=== PATIENT | female | born 1990 | race Caucasian/White ===

== ENCOUNTER 2020-11-10 16:01 | Emergency (ER) | payer SELFPAY ==
[2020-11-10 16:26] LABS: BILIRUBIN,URINE NEGATIVE (NEGATIVE); GLUCOSE, URINE (UA) NEGATIVE (NEGATIVE); KETONES,URINE (UA) NEGATIVE (NEGATIVE); LEUKOCYTE ESTERASE, URINE TRACE (NEGATIVE); NITRITE,URINE NEGATIVE (NEGATIVE); OCCULT BLOOD,URINE NEGATIVE (NEGATIVE); PH,URINE 8.5 PH (5.0-7.5); PROTEIN,URINE NEGATIVE (NEGATIVE); UROBILINOGEN,URINE 0.2 (NORMAL) E.U./dL (NORMAL)
[2020-11-10 16:27] LABS: CLARITY,URINE CLEAR (CLEAR)
[2020-11-10 16:33] LABS: BACTERIA,URINE Rare /HPF (None Seen); HCG UR QUAL NEGATIVE; MUCUS,URINE Few Strands; RBC,URINE 0-5 /HPF (0-5); WBC,URINE 0-3 /HPF (0-5)
[2020-11-10 16:35] LABS: SQUAMOUS EPITHELIAL CELL,UR MOD Squamous (<= Few)
[2020-11-10] MEDS ORDERED: cefTRIAXone 250 MG VIAL IM STA (16:38)
[2020-11-10] MEDS ORDERED: DOXYCYCLINE 100 MG TABLET PO STA (16:38)
[2020-11-10] MEDS ORDERED: LIDOCAINE 1% 2 ML VIAL MC ONE (16:38)
--- NOTE | 2020-11-10 16:42 | ED Physician Documentation ---
History of Present Illness - Stated complaint Stated Complaint: FEMALE - Chief complaint Chief Complaint: UTI - History obtained from History obtained from: Patient - Additonal information Additional information: Patient comes emergency department for chief complaint of "vaginal discharge that feels just like my chlamydia that I had before". She also complains of sores on her legs, which she thinks are infected with staph bacteria. Patient states that she is homeless, but does try to keep her source clean with alcohol. She denies any fevers or chills. She states she has had a discomfort in her low midline pelvis with discharge ever since her children's father was sleeping around with a number of different women the summer. Patient states that she has an IUD in place but worries that she may be . No vaginal bleeding. She has taken a store-bought test a few times and each time, seems indeterminate. No other complaints at this time. Review of Systems Ten Systems: 10 systems reviewed and negative Constitutional: reports: Reviewed and negative Eyes: reports: Reviewed and negative Ears: reports: Reviewed and negative Nose: reports: Reviewed and negative Throat: reports: Reviewed and negative Cardiac: reports: Reviewed and negative Respiratory: reports: Reviewed and negative GI: reports: Reviewed and negative : reports: Discharge Skin: reports: Lesions Musculoskeletal: reports: Reviewed and negative Neurologic: reports: Reviewed and negative Psychiatric: reports: Reviewed and negative Endocrine: reports: Reviewed and negative Immunocompromised: reports: Reviewed and negative PD PAST MEDICAL HISTORY - Past Surgical History Past Surgical History: Yes - Present Medications Home Medications: Ambulatory Orders Medication Instructions Recorded Confirmed Doxycycline Monohydrate 100 mg PO BID #14 11/10/20 - Allergies Allergies/Adverse Reactions: Allergies Allergy/AdvReac Type Severity Reaction Status Date / Time Penicillins Allergy Rash Verified 11/10/20 16:08 - Social History Does the pt smoke?: Yes Smoking Status: Current every day smoker Does the pt drink ETOH?: Yes Does the pt have substance abuse?: Yes Substance Use and Type: Marijuana PD ED PE NORMAL - Vitals Vital signs reviewed: Yes - General General: Alert and oriented X 3, No acute distress, Well developed/nourished - HEENT HEENT: Atraumatic, PERRL, EOMI, Moist mucous membranes - Neck Neck: Supple, no meningeal sign - Cardiac Cardiac: RRR, No murmur, Strong equal pulses - Respiratory Respiratory: No respiratory distress, Clear bilaterally - Abdomen Abdomen: Soft, Non tender, Non distended - Female Female : Deferred - Derm Derm: Normal color, Warm and dry, Other (Multiple lesions, scabbed, without drainage or associated edema/erythema. No induration or fluctuance.) - Extremities Extremities: No deformity, No edema - Neuro Neuro: Alert and oriented X 3, resident care director 2-12 intact, Normal speech - Psych Psych: Normal mood, Normal affect Results - Vitals Vitals: Vital Signs - 24 hr 11/10/20 16:05 Temperature 36.6 C Heart Rate 104 H Respiratory 16 Rate Blood Pressure 121/84 H O2 Saturation 100 Oxygen O2 Source Room air - Labs Labs: Laboratory Tests 11/10/20 16:12 Urine Color YELLOW Urine Clarity CLEAR Urine pH 8.5 H Ur Specific [place] 1.020 Urine Protein NEGATIVE Urine Glucose (UA) NEGATIVE Urine Ketones NEGATIVE Urine Occult Blood NEGATIVE Urine Nitrite NEGATIVE Urine Bilirubin NEGATIVE Urine Urobilinogen 0.2 (NORMAL) Ur Leukocyte Esterase TRACE H Urine RBC 0-5 Urine WBC 0-3 Ur Squamous Epith Cells MOD Squamous H Urine Bacteria Rare Urine Mucus Few Strands Ur Microscopic Review INDICATED Urine Culture Comments NOT INDICATED Urine HCG, Qual NEGATIVE PD MEDICAL DECISION MAKING - ED course Complexity details: reviewed results, re-evaluated patient, considered differential, d/w patient ED course: Patient's urinalysis and test were negative. She was treated with Rocephin and doxycycline, due to her high risk situation. I do not find her lesions to appear infected. We have discussed the need for follow-up in women's health if her symptoms are not improved after the antibiotics. Departure - Departure Disposition: 01 Home, Self Care Clinical Impression: Sexually transmitted infection, Skin lesions Condition: Stable Instructions: ED Chlamydia Female Prescriptions: Doxycycline Monohydrate 100 mg PO BID #14 Comments: Please take the antibiotics as directed. Your test is negative. If you become sexually active again with your children's father, please encourage him to be tested and treated for sexually transmitted infection. If you are still having symptoms after treatment, please follow-up in Women's Health for further evaluation.
[2020-11-10 17:12] VITALS: BP 123/80
== END 2020-11-10 17:14 | disposition home or self-care (01) ==
LOC: ED 16:01
DX: A64 Unspecified sexually transmitted disease (principal); L98.9 Disorder of the skin and subcutaneous tissue, unspecified; Z32.02 Encounter for pregnancy test, result negative; Z97.5 Presence of (intrauterine) contraceptive device; Z59.00 Homelessness unspecified; F17.200 Nicotine dependence, unspecified, uncomplicated
CPT/HCPCS: 81001; 81025; 96372; 99283; A9270; 81003; 87086

== ENCOUNTER 2020-11-26 12:45 | Emergency (ER) | payer MEDICAID ==
[2020-11-26 12:55] VITALS: BP 98/65
[2020-11-26 13:14] LABS: BASOPHILS % (AUTO) 0.5 %; EOSINOPHILS # (AUTO) 0.2 10^3/uL (0.0-0.7); EOSINOPHILS % (AUTO) 2.3 %; HCT - HEMATOCRIT 38.1 % (37.0-47.0); HGB - HEMOGLOBIN 12.6 g/dL (12.0-16.0); LYMPHOCYTES # (AUTO) 2.1 10^3/uL (1.5-3.5); LYMPHOCYTES % (AUTO) 26.9 %; MEAN CORPUSCULAR HEMOGLOBIN 31.5 pg (27.0-31.0); MEAN CORPUSCULAR HGB CONC 33.1 g/dL (32.0-36.0); MEAN CORPUSCULAR VOLUME 95.3 fL (81.0-99.0); MEAN PLATELET VOLUME 9.6 fL (7.9-10.8); MONOCYTES # (AUTO) 0.6 10^3/uL (0.0-1.0); MONOCYTES % (AUTO) 7.8 %; NEUTROPHILS # (AUTO) 4.9 10^3/uL (1.5-6.6); NEUTROPHILS % (AUTO) 62.2 %; PLT - PLATELET COUNT 223 10^3/uL (130-450); WHITE BLOOD COUNT 7.9 x10^3/uL (4.8-10.8)
[2020-11-26 13:23] LABS: ALBUMIN 4.2 g/dL (3.2-5.5); ALBUMIN/GLOBULIN RATIO 1.4 (1.0-2.2); BILIRUBIN,TOTAL 0.5 mg/dL (0.2-1.0); CREATININE 0.5 mg/dL (0.4-1.0); TOTAL PROTEIN 7.1 g/dL (6.7-8.2)
[2020-11-26 13:32] LABS: BILIRUBIN,URINE NEGATIVE (NEGATIVE); GLUCOSE, URINE (UA) NEGATIVE (NEGATIVE); KETONES,URINE (UA) NEGATIVE (NEGATIVE); LEUKOCYTE ESTERASE, URINE LARGE (NEGATIVE); NITRITE,URINE NEGATIVE (NEGATIVE); OCCULT BLOOD,URINE NEGATIVE (NEGATIVE); PH,URINE 7.5 PH (5.0-7.5); PROTEIN,URINE NEGATIVE (NEGATIVE); UROBILINOGEN,URINE 0.2 (NORMAL) E.U./dL (NORMAL)
[2020-11-26 13:34] LABS: HCG UR QUAL NEGATIVE
[2020-11-26 13:40] LABS: BACTERIA,URINE Rare /HPF (None Seen); CLARITY,URINE CLEAR (CLEAR); RBC,URINE 0-5 /HPF (0-5); SQUAMOUS EPITHELIAL CELL,UR MOD Squamous (<= Few)
--- NOTE | 2020-11-26 15:19 | ED Physician Documentation ---
PD HPI BACK PAIN - Stated complaint Stated Complaint: BACK PX - Chief complaint Chief Complaint: Abd Pain - History obtained from History obtained from: Patient PD PAST MEDICAL HISTORY - Past Surgical History Past Surgical History: Yes - Present Medications Home Medications: Ambulatory Orders Medication Instructions Recorded Confirmed Doxycycline Monohydrate 100 mg PO BID #14 11/10/20 - Allergies Allergies/Adverse Reactions: Allergies Allergy/AdvReac Type Severity Reaction Status Date / Time Penicillins Allergy Rash Verified 11/26/20 12:52 - Social History Does the pt smoke?: Yes Smoking Status: Current every day smoker Does the pt drink ETOH?: Yes Does the pt have substance abuse?: Yes Results - Vitals Vitals: Vital Signs - 24 hr 11/26/20 12:52 Temperature 36.6 C Heart Rate 71 Respiratory 18 Rate Blood Pressure 98/65 O2 Saturation 99 Oxygen O2 Source Room air - Labs Labs: Laboratory Tests 11/26/20 11/26/20 11/26/20 13:00 13:00 13:07 WBC 7.9 RBC 4.00 L Hgb 12.6 Hct 38.1 MCV 95.3 MCH 31.5 H MCHC 33.1 RDW 13.0 Plt Count 223 MPV 9.6 Neut # (Auto) 4.9 Lymph # (Auto) 2.1 [place] # (Auto) 0.6 Eos # (Auto) 0.2 Baso # (Auto) 0.0 Absolute Nucleated RBC 0.00 Nucleated RBC % 0.0 Sodium Potassium Chloride Carbon Dioxide Anion Gap BUN Creatinine Estimated GFR (MDRD) Glucose Calcium Total Bilirubin AST ALT Alkaline Phosphatase Total Protein Albumin Globulin Albumin/Globulin Ratio Lipase Urine Color YELLOW Urine Clarity CLEAR Urine pH 7.5 Ur Specific [place] 1.010 Urine Protein NEGATIVE Urine Glucose (UA) NEGATIVE Urine Ketones NEGATIVE Urine Occult Blood NEGATIVE Urine Nitrite NEGATIVE Urine Bilirubin NEGATIVE Urine Urobilinogen 0.2 (NORMAL) Ur Leukocyte Esterase LARGE H Urine RBC 0-5 Urine WBC 11-25 H Ur Squamous Epith Cells MOD Squamous H Urine Bacteria Rare Ur Microscopic Review INDICATED Urine Culture Comments NOT INDICATED Urine HCG, Qual NEGATIVE 11/26/20 13:07 WBC RBC Hgb Hct MCV MCH MCHC RDW Plt Count MPV Neut # (Auto) Lymph # (Auto) [place] # (Auto) Eos # (Auto) Baso # (Auto) Absolute Nucleated RBC Nucleated RBC % Sodium 137 Potassium 4.0 Chloride 102 Carbon Dioxide 28 Anion Gap 7.0 BUN 6 Creatinine 0.5 Estimated GFR (MDRD) 144 Glucose 83 Calcium 9.0 Total Bilirubin 0.5 AST 16 ALT 17 Alkaline Phosphatase 56 Total Protein 7.1 Albumin 4.2 Globulin 2.9 Albumin/Globulin Ratio 1.4 Lipase 33 Urine Color Urine Clarity Urine pH Ur Specific [place] Urine Protein Urine Glucose (UA) Urine Ketones Urine Occult Blood Urine Nitrite Urine Bilirubin Urine Urobilinogen Ur Leukocyte Esterase Urine RBC Urine WBC Ur Squamous Epith Cells Urine Bacteria Ur Microscopic Review Urine Culture Comments Urine HCG, Qual Departure - Departure Disposition: ED Left Without Being Seen Discharge Date/Time: 11/26/20 14:45
== END 2020-11-26 14:45 | disposition left against medical advice (07) ==
LOC: ED 12:45
DX: Z53.21 Procedure and treatment not carried out due to patient leaving prior to being seen by health care provider (principal)
CPT/HCPCS: 36415; 80053; 81001; 81003; 81025; 83690; 85025; 87086

== ENCOUNTER 2021-02-23 14:47 | Emergency (ER) | payer MEDICAID ==
[2021-02-23] MEDS ORDERED: MECLIZINE 12.5 MG TABLET PO STA (15:36)
[2021-02-23] MEDS ORDERED: ONDANSETRON ODT 4 MG TABLET TL STA (15:36)
[2021-02-23 15:39] VITALS: BP 115/78
--- NOTE | 2021-02-23 15:39 | ED Physician Documentation ---
PD HPI HEADACHE - Stated complaint Stated Complaint: HEADACHE/VERTIGO - Chief complaint Chief Complaint: Neuro - History obtained from History obtained from: Patient - Additional information Additional information: About 2 weeks ago she slipped and fell down stairs hitting her neck and head going down. She was seen at [facility] and reportedly had a head CT done which was unremarkable per her. She continues to have severe headaches, vertigo, nausea, and neck pain as well as left greater than right hand weakness. Review of Systems Constitutional: denies: Fever, Chills Eyes: reports: Photophobia. denies: Loss of vision, Decreased vision Nose: denies: Rhinorrhea / runny nose, Congestion Cardiac: denies: Chest pain / pressure, Palpitations Respiratory: denies: Dyspnea, Cough PD PAST MEDICAL HISTORY - Past Surgical History Past Surgical History: Yes - Present Medications Home Medications: Ambulatory Orders Medication Instructions Recorded Confirmed Meclizine HCl [Motion Sickness] 25 mg PO Q6H PRN #20 tablet 02/23/21 Naproxen 500 mg PO BID PRN #20 tab 02/23/21 Ondansetron Odt [Zofran] 4 mg TL Q6H PRN #10 tablet 02/23/21 - Allergies Allergies/Adverse Reactions: Allergies Allergy/AdvReac Type Severity Reaction Status Date / Time Penicillins Allergy Rash Verified 02/23/21 14:57 - Social History Does the pt smoke?: Yes Smoking Status: Current every day smoker Does the pt drink ETOH?: Yes Does the pt have substance abuse?: Yes PD ED PE NORMAL - Vitals Vital signs reviewed: Yes - General General: Alert and oriented X 3, Other (She appears uncomfortable and photophobic) - HEENT HEENT: PERRL, EOMI - Neck Neck: Other (Mild tenderness to the mid and lower C-spine) - Cardiac Cardiac: RRR, No murmur - Respiratory Respiratory: No respiratory distress, Clear bilaterally - Abdomen Abdomen: Non tender - Neuro Neuro: Alert and oriented X 3, private duty aide 2-12 intact, No motor deficit, No sensory deficit, Normal speech Eye Opening: Spontaneous Motor: Obeys Commands Verbal: Oriented GCS Score: 15 Results - Vitals Vitals: Vital Signs - 24 hr 02/23/21 02/23/21 14:57 15:35 Temperature 36.6 C 36.5 C Heart Rate 75 73 Respiratory 18 14 Rate Blood Pressure 118/54 L 115/78 O2 Saturation 100 97 Oxygen O2 Source Room air - Rads (name of study) CT of the head and cervical spine Radiology: EMP read contemporaneously (Negative) PD MEDICAL DECISION MAKING - ED course ED course: 30-year-old woman with persistent symptoms after a fall hitting her head. Given the persistence of Severe symptoms repeat imaging was done and negative. Departure - Departure Disposition: 01 Home, Self Care Clinical Impression: Concussion Condition: Good Record reviewed to determine appropriate education?: Yes Instructions: Concussion [place] Prescriptions: Meclizine HCl [Motion Sickness] 25 mg PO Q6H PRN #20 tablet PRN Reason: Dizziness Naproxen 500 mg PO BID PRN #20 tab PRN Reason: Pain Ondansetron Odt [Zofran] 4 mg TL Q6H PRN #10 tablet PRN Reason: Nausea / Vomiting Comments: I sent your prescriptions to the [facility] pharmacy at the corner of [address] here in [place]. Return for new or worsening symptoms. Follow-up with the physician as you are planning.
--- NOTE | 2021-02-23 16:25 | CT Report ---
PROCEDURE: HEAD WO INDICATIONS: head inj TECHNIQUE: Noncontrast 4.5 mm thick angled axial sections acquired from the foramen magnum to the vertex. For r adiation dose reduction, the following was used: automated exposure control, adjustment of mA and/or kV according to patient size. COMPARISON: CT cervical spine 02/23/2021. FINDINGS: Image quality: Excellent. CSF spaces: Basal cisterns are patent. No extra-axial fluid collections. Ventricles are normal in size and shape. Brain: No midline shift. No intracranial masses or hemorrhage. Pineda-white matter interface is norm al. Skull and face: Calvarium and visualized facial bones are intact, without suspicious lesions. Sinuses: Visualized sinuses and mastoids are clear. IMPRESSION: 1. No acute intracranial process. Reviewed by: Cyndi Masterson MD on 02/23/2021 4:24 PM PST Approved by: Cyndi Masterson MD on 02/23/2021 4:24 PM PST Station ID: [id number]
--- NOTE | 2021-02-23 16:27 | CT Report ---
PROCEDURE: CERVICAL SPINE WO INDICATIONS: head inj TECHNIQUE: Noncontrast 3 mm thick sections acquired from the skull base to the T4 level. Sagittal and coronal r eformats were then constructed. For radiation dose reduction, the following was used: automated exp osure control, adjustment of mA and/or kV according to patient size. COMPARISON: None. FINDINGS: Image quality: Excellent. Bones: No fractures or dislocations. Visualized superior ribs are intact. Soft tissues: Prevertebral soft tissues are normal in thickness. No paravertebral hematomas. No ap ical pneumothoraces. IMPRESSION: No visualized fracture or dislocation. Reviewed by: Cyndi Masterson MD on 02/23/2021 4:25 PM [facility] Approved by: Cyndi Masterson MD on 02/23/2021 4:25 PM [facility] Station ID: [id number]
== END 2021-02-23 17:01 | disposition home or self-care (01) ==
LOC: ED 14:47
DX: S06.0X0A Concussion without loss of consciousness, initial encounter (principal); M54.2 Cervicalgia; W10.9XXA Fall (on) (from) unspecified stairs and steps, initial encounter; F17.200 Nicotine dependence, unspecified, uncomplicated
CPT/HCPCS: 70450; 72125; 99283; 99284; A9270; Q0162

== ENCOUNTER 2021-03-13 18:17 | Emergency (ER) | payer MEDICAID ==
--- NOTE | 2021-03-13 19:06 | ED Physician Documentation ---
PD HPI HEADACHE - Stated complaint Stated Complaint: HEADACHE/POST CONCUSSION - Chief complaint Chief Complaint: General - History obtained from History obtained from: Patient - History of Present Illness Timing - onset: How many months ago (1) Timing - duration: Months (1) Timing - details: Abrupt onset (Patient states she fell and hit her head about a month ago and was seen at [facility] with the negative CT and diagnosed with a concussion. Continued symptoms and seen in our ER a week later with repeat's head CT normal. Has continued with headaches and also has abnormal sensation on head.), Still present, Waxing and waning Review of Systems Constitutional: denies: Fever, Chills Eyes: reports: Decreased vision (blurred at times.) Cardiac: denies: Chest pain / pressure, Palpitations, Pedal edema Respiratory: denies: Dyspnea, Cough, Wheezing GI: reports: Abdominal Pain (lower abd/midline pelvic for several days. Concerned about IUD position and ovaries, etc.) : reports: Dysuria, Frequency, Control (IUD in place). denies: Discharge Musculoskeletal: denies: Neck pain, Back pain Neurologic: reports: Headache (intermittent since injury, mostly back of head.), Head injury (1 month ago). denies: Focal weakness, Numbness PD PAST MEDICAL HISTORY - Past Medical History Cardiovascular: None Respiratory: None Endocrine/Autoimmune: None GI: None COMMODITY BUYER: None - Past Surgical History Past Surgical History: Yes - Present Medications Home Medications: Ambulatory Orders Medication Instructions Recorded Confirmed Meclizine HCl [Motion Sickness] 25 mg PO Q6H PRN #20 tablet 02/23/21 Naproxen 500 mg PO BID PRN #20 tab 02/23/21 Ondansetron Odt [Zofran] 4 mg TL Q6H PRN #10 tablet 02/23/21 Acetaminophen [Acetaminophen Extra 500 mg PO QID PRN #50 tablet 03/13/21 Strength] Naproxen 500 mg PO BID #20 tab.sr 03/13/21 Sulfamethox/Trimeth 800/160 1 each PO BID #10 tablet 03/13/21 [Bactrim Ds 800/160] metroNIDAZOLE [Flagyl] 500 mg PO BID 7 Days #14 tablet 03/14/21 - Allergies Allergies/Adverse Reactions: Allergies Allergy/AdvReac Type Severity Reaction Status Date / Time Penicillins Allergy Rash Verified 03/13/21 18:40 - Social History Does the pt smoke?: Yes Smoking Status: Current every day smoker Does the pt drink ETOH?: Yes Does the pt have substance abuse?: Yes PD ED PE NORMAL - Vitals Vital signs reviewed: Yes - General General: Alert and oriented X 3, Well developed/nourished - HEENT HEENT: PERRL, EOMI, Pharynx benign, Other (some scalp tenderness on back of head without rash. ) - Neck Neck: Supple, no meningeal sign, No bony TTP - Abdomen Abdomen: Normal bowel sounds, Soft, Non distended, No organomegaly, Other (tender suprapubic mostly midline withut guarding nor percussion tender. ) - Female Female : Deferred (had her obtain self-swabs. ) - Rectal Rectal: Deferred - Back Back: No CVA TTP - Derm Derm: Normal color, Warm and dry - Neuro Neuro: Alert and oriented X 3, laborer laboratory 2-12 intact, No motor deficit, No sensory deficit, Normal speech Results - Vitals Vitals: Vital Signs - 24 hr 03/13/21 03/13/21 03/13/21 18:35 19:02 21:02 Temperature 36.5 C Heart Rate 79 66 Respiratory 18 18 20 Rate Blood Pressure 125/88 H 105/74 122/74 O2 Saturation 100 100 03/13/21 21:54 Temperature Heart Rate 67 Respiratory 18 Rate Blood Pressure 113/70 O2 Saturation 100 Oxygen O2 Source Room air - Labs Labs: Laboratory Tests 03/13/21 03/13/21 03/13/21 19:36 20:40 20:40 Urine Color YELLOW Urine Clarity CLEAR Urine pH 5.5 Ur Specific [place] 1.025 Urine Protein NEGATIVE Urine Glucose (UA) NEGATIVE Urine Ketones NEGATIVE Urine Occult Blood NEGATIVE Urine Nitrite NEGATIVE Urine Bilirubin NEGATIVE Urine Urobilinogen 0.2 (NORMAL) Ur Leukocyte Esterase LARGE H Urine RBC 0-5 Urine WBC 11-25 H Ur Squamous Epith Cells FEW Squamous Urine Bacteria Moderate H Ur Microscopic Review INDICATED Urine Culture Comments INDICATED Urine HCG, Qual NEGATIVE C. glabrata (PCR) NEGATIVE C. krusei (PCR) NEGATIVE Lisa species DNA NEGATIVE Chlam trachomat DNA PCR NEGATIVE N.gonorrhoeae DNA (PCR) NEGATIVE T. vaginalis (PCR) POSITIVE A POSITIVE A Bact Vaginosis (PCR) NEGATIVE PD MEDICAL DECISION MAKING - ED course Complexity details: reviewed old records (eval in ER 02/23/21 for these symptoms. ), reviewed results (small cyst ovarian on US, may be incidental given small size. IUD in place. Possible UTI. ), considered differential (seems continued concussive headache and blurred vision. I would feel bleed would have been seen on initial or repeat CT scan a week later. I would not see need for another scan. Lower abd pain can be evaluated with UA/US pelvic and STD PCR tests. ), d/w patient, other (Results came in as I am finishing up the charting in my note positive trichomoniasis vaginalis. I added Flagyl 500 mg twice daily for a week to her prescription medications and transmitted to the same pharmacy.) Departure - Departure Disposition: 01 Home, Self Care Clinical Impression: Pelvic pain Concussion Qualifiers: Encounter type: subsequent encounter Loss of consciousness presence/duration: with LOC of unspecified duration Qualified Code(s): S06.0X9D - Concussion with loss of consciousness of unspecified duration, subsequent encounter UTI (urinary tract infection) Qualifiers: Urinary tract infection type: acute cystitis Hematuria presence: without hematuria Qualified Code(s): N30.00 - Acute cystitis without hematuria Condition: Stable Record reviewed to determine appropriate education?: Yes Instructions: Concussion [place], ED UTI Cystitis Female Prescriptions: Acetaminophen [Acetaminophen Extra Strength] 500 mg PO QID PRN #50 tablet PRN Reason: Pain Sulfamethox/Trimeth 800/160 [Bactrim Ds 800/160] 1 each PO BID #10 tablet metroNIDAZOLE [Flagyl] 500 mg PO BID 7 Days #14 tablet Naproxen 500 mg PO BID #20 tab.sr Comments: Symptoms sound likely to be persisting concussion symptoms which most commonly lasts several days to a few weeks but sometimes will last several months. The CT scan that you would had and then the repeat CT scan following should have picked up on any bleeding or even delayed bleeding. It would be unusual to have delayed bleed at this timing after the injury. Persistent concussive symptoms however would make more sense. With that in mind, I would suggest some regular anti-inflammatories such as naproxen twice daily with food for the next 7 to 10 days. To that add Tylenol 4 times a day if needed for pain. Your pelvic pain may relate to a signs of a bladder infection on your urine test. We can go with Bactrim twice daily for the next 5 days for that. Your ultrasound shows normal position of the IUD. You have a small ovarian cyst on the left side I believe that was only about 1 inch size so typically does not cause pain. However treatment with anti-inflammatories would be appropriate for this as well. The vaginal culture test will result in a day or so and will call you if any positive tests for bacterial vaginitis or other vaginal infections. I transmitted your prescriptions to [facility] in [place]. Recheck if not improved well over the next 2 days on the pelvic pain and in the next week or so regarding headaches and other symptoms. Can follow-up back here in the ER or with the walk-in clinic down in [place]. There is another medical clinic in [place] called [facility]. You could try seeing if they are taking new patients as well; their number is [phone]. Discharge Date/Time: 03/13/21 21:54
[2021-03-13 20:47] LABS: BILIRUBIN,URINE NEGATIVE (NEGATIVE); GLUCOSE, URINE (UA) NEGATIVE (NEGATIVE); KETONES,URINE (UA) NEGATIVE (NEGATIVE); LEUKOCYTE ESTERASE, URINE LARGE (NEGATIVE); NITRITE,URINE NEGATIVE (NEGATIVE); OCCULT BLOOD,URINE NEGATIVE (NEGATIVE); PH,URINE 5.5 PH (5.0-7.5); PROTEIN,URINE NEGATIVE (NEGATIVE); UROBILINOGEN,URINE 0.2 (NORMAL) E.U./dL (NORMAL)
[2021-03-13 20:49] LABS: CLARITY,URINE CLEAR (CLEAR); HCG UR QUAL NEGATIVE
[2021-03-13 21:08] LABS: BACTERIA,URINE Moderate /HPF (None Seen); RBC,URINE 0-5 /HPF (0-5); SQUAMOUS EPITHELIAL CELL,UR FEW Squamous (<= Few)
--- NOTE | 2021-03-13 21:33 | Ultrasound Report ---
PROCEDURE: Pelvic w/Transvag+Doppler Comp INDICATIONS: pelvic cramping x days. Concern of IUD location TECHNIQUE: Real-time scanning was performed of the pelvic organs, with image documentation. Additional endovagi nal scanning was necessary due to incomplete visualization of the adnexal and endometrial structures by transabdominal scanning. COMPARISON: None. FINDINGS: No pathologic free abdominal or pelvic fluid. Uterus: Uterus is normal in size at 6.4 x 2.9 x 4.6 cm. The endometrium measures 3.9 mm in combined thickness. IUD is present. Nabothian cysts are present. Ovaries: Right ovary measures 3.2 x 2.1 x 2.9 cm, volume 10.2 cc. Prominent follicle is present asaf uring 1.7 cm. Left ovary measures 3.4 x 2.0 x 3.1 cm, volume 10.8 cc. There is a thick-walled focus o f decreased echogenicity measuring 1.9 x 2.0 x 2.3 cm. IMPRESSION: Suspected involuting hemorrhagic left ovarian cyst. Reviewed by: Cyndi Masterson MD on 03/13/2021 9:31 PM PST Approved by: Cyndi Masterson MD on 03/13/2021 9:31 PM PST Station ID: [id number]
[2021-03-13] MEDS ORDERED: NAPROXEN 250 MG TABLET PO STA (21:37)
[2021-03-13] MEDS ORDERED: SULFAMETH/TRIMETH DS 800/160 MG TABLET PO STA (21:37)
[2021-03-13 21:55] VITALS: BP 113/70
[2021-03-13 22:46] LABS: BACTERIAL VAGINOSIS DNA NEGATIVE (NEGATIVE); CANDIDA GLABRATA DNA NEGATIVE (NEGATIVE); CANDIDA GROUP DNA NEGATIVE (NEGATIVE); CANDIDA KRUSEI DNA NEGATIVE (NEGATIVE); TRICHOMONAS VAGINALIS DNA POSITIVE (NEGATIVE)
[2021-03-13 23:31] LABS: CHLAMYDIA TRACHOMATIS DNA NEGATIVE (NEGATIVE); NEISSERIA GONORRHOEAE DNA NEGATIVE (NEGATIVE)
[2021-03-13 23:34] LABS: TRICHOMONAS VAGINALIS DNA POSITIVE (NEGATIVE)
== END 2021-03-13 21:54 | disposition home or self-care (01) ==
LOC: ED 18:17
DX: N30.00 Acute cystitis without hematuria (principal); A59.01 Trichomonal vulvovaginitis; N83.202 Unspecified ovarian cyst, left side; Z97.5 Presence of (intrauterine) contraceptive device; G44.309 Post-traumatic headache, unspecified, not intractable; S06.0X9D Concussion with loss of consciousness of unspecified duration, subsequent encounter; X58.XXXD Exposure to other specified factors, subsequent encounter; F17.200 Nicotine dependence, unspecified, uncomplicated
CPT/HCPCS: 76830; 76856; 81001; 81025; 87086; 87481; 87491; 87591; 87661; 87801; 93975; 99284; A9270; 81003

== ENCOUNTER 2021-06-17 12:36 | Outpatient (CLI) | payer MEDICAID ==
--- NOTE | 2021-06-17 14:30 | XRAY Report ---
PROCEDURE: Cervical Spine w/Flex/Ext INDICATIONS: NECK ARTHRALGIA TECHNIQUE: 6 views of the cervical spine were acquired. COMPARISON: None. FINDINGS: Bones: No fractures or dislocations to the T1 level. No suspicious bony lesions. There is normal r simone of motion between flexion and extension, with preserved normal bony alignment. Mild cervical spo ndylosis is centered at C5-C6. There is chronic disc height loss and small anterior osteophyte and un covertebral joint hypertrophy at that level. There is moderate bony foraminal narrowing on the right at C3-C4, C4-C5, and C5-C6. Soft tissues: Prevertebral soft tissues are normal in thickness. IMPRESSION: 1. Cervical spondylosis. 2. Normal motion on flexion and extension. 3. Moderate right bony foraminal narrowing at C3-C4, C4-C5, and C5-C6. Reviewed by: Phong Raza MD on 06/17/2021 2:29 PM PDT Approved by: Phong Raza MD on 06/17/2021 2:29 PM PDT Station ID: [id number]
== END 2021-06-17 12:37 | disposition home or self-care (01) ==
LOC: DI.S 12:36
PROVIDERS: ATTEND Registered Nurse
DX: M47.812 Spondylosis without myelopathy or radiculopathy, cervical region (principal); M50.322 Other cervical disc degeneration at C5-C6 level; M48.02 Spinal stenosis, cervical region

== ENCOUNTER 2021-06-29 14:15 | Outpatient (CLI) | payer MEDICAID ==
[2021-06-29 19:56] LABS: BASOPHILS % (AUTO) 0.3 %; EOSINOPHILS # (AUTO) 0.1 10^3/uL (0.0-0.7); EOSINOPHILS % (AUTO) 1.6 %; HCT - HEMATOCRIT 41.3 % (37.0-47.0); HGB - HEMOGLOBIN 13.4 g/dL (12.0-16.0); LYMPHOCYTES # (AUTO) 2.8 10^3/uL (1.5-3.5); LYMPHOCYTES % (AUTO) 45.8 %; MEAN CORPUSCULAR HGB CONC 32.4 g/dL (32.0-36.0); MEAN CORPUSCULAR VOLUME 95.6 fL (81.0-99.0); MEAN PLATELET VOLUME 10.8 fL (7.9-10.8); MONOCYTES # (AUTO) 0.6 10^3/uL (0.0-1.0); MONOCYTES % (AUTO) 9.8 %; NEUTROPHILS # (AUTO) 2.6 10^3/uL (1.5-6.6); NEUTROPHILS % (AUTO) 42.5 %; PLT - PLATELET COUNT 293 10^3/uL (130-450); RED BLOOD COUNT 4.32 10^6/uL (4.20-5.40); RED CELL DISTRIBUTION WIDTH 12.5 % (12.0-15.0); WHITE BLOOD COUNT 6.1 x10^3/uL (4.8-10.8)
[2021-06-29 20:07] LABS: ALBUMIN 4.5 g/dL (3.2-5.5); ALBUMIN/GLOBULIN RATIO 1.5 (1.0-2.2); BILIRUBIN,TOTAL 0.7 mg/dL (0.2-1.0); CALCIUM 9.2 mg/dL (8.5-10.3); CREATININE 0.6 mg/dL (0.4-1.0); POTASSIUM 4.5 mmol/L (3.5-5.0); TOTAL PROTEIN 7.5 g/dL (6.7-8.2)
[2021-06-29 20:25] LABS: THYROID STIMULATING HORMONE 3.6 uIU/mL (0.34-5.60)
[2021-07-01 05:12] LABS: RPR Non Reactive (Non Reactive)
[2021-07-01 08:18] LABS: HIV SCREEN 4TH GENERATION Non Reactive (Non Reactive)
== END 2021-06-29 14:16 | disposition home or self-care (01) ==
LOC: LAB.S 14:15
PROVIDERS: ATTEND Registered Nurse
DX: Z13.228 Encounter for screening for other metabolic disorders (principal); Z13.29 Encounter for screening for other suspected endocrine disorder; Z13.0 Encounter for screening for diseases of the blood and blood-forming organs and certain disorders involving the immune mechanism; Z11.3 Encounter for screening for infections with a predominantly sexual mode of transmission
CPT/HCPCS: 36415; 80053; 84443; 85025; 86592; 87389

== ENCOUNTER 2022-05-04 19:26 | Emergency (ER) | payer MEDICAID ==
[2022-05-04 19:37] VITALS: BP 109/66
--- NOTE | 2022-05-04 20:22 | ED Physician Documentation ---
PD HPI HEENT - Stated complaint Stated Complaint: QTIP BROKE OFF IN EAR - Chief complaint Chief Complaint: Heent - History obtained from History obtained from: Patient - Additional information Additional information: Patient is a 31-year-old female presenting for evaluation of possible foreign body in the right ear. Patient states that she was cleaning her ears with a Q- tip and could not find the cotton tip and and felt like it could be stuck in the right ear. She denies pain in her ears or change in hearing. Review of Systems Constitutional: denies: Fever Nose: denies: Congestion Cardiac: denies: Chest pain / pressure Respiratory: denies: Cough Neurologic: denies: Headache PD PAST MEDICAL HISTORY - Past Medical History Past Medical History: No Cardiovascular: None Respiratory: None Endocrine/Autoimmune: None GI: None SHUTDOWN PLANNER: None - Past Surgical History Past Surgical History: Yes - Present Medications Home Medications: Ambulatory Orders Medication Instructions Recorded Confirmed No Known Home Medications 05/04/22 05/04/22 - Allergies Allergies/Adverse Reactions: Allergies Allergy/AdvReac Type Severity Reaction Status Date / Time Penicillins Allergy Rash Verified 05/04/22 19:37 - Social History Does the pt smoke?: Yes Smoking Status: Current every day smoker Does the pt drink ETOH?: Yes Does the pt have substance abuse?: Yes Substance Use and Type: Marijuana - Immunizations Immunizations: TDAP >10years/unknown PD ED PE NORMAL - General General: Alert and oriented X 3, No acute distress, Well developed/nourished - HEENT HEENT: Atraumatic, Ears normal (TMs clear bilaterally with no perforation, no signs of retained foreign body in ear canals, no signs of external otitis), Moist mucous membranes, Pharynx benign - Neck Neck: Supple, no meningeal sign - Respiratory Respiratory: No respiratory distress - Neuro Neuro: Normal speech Results - Vitals Vitals: Vital Signs - 24 hr 05/04/22 19:34 Temperature 36.8 C Heart Rate 62 Respiratory 16 Rate Blood Pressure 109/66 O2 Saturation 100 Oxygen O2 Source Room air PD Medical Decision Making - ED course ED course: Patient presenting for evaluation of possible retained foreign body in the right ear canal. Both ear canals were assessed with no signs of retained foreign body or infection.Patient was counseled to use caution when using Q-tips.Patient is advised on concerning symptoms to return for. Departure - Departure Disposition: 01 Home, Self Care Clinical Impression: Foreign body sensation in right ear canal Condition: Stable Instructions: ED Foreign Body Ear Canal Comments: Your ear canals are clear and I do not see signs of a retained q tip end or other foreign body. Please use caution when putting anything in your ear canals. Return to ER with any worsening symptoms. Discharge Date/Time: 05/04/22 20:26
== END 2022-05-04 20:26 | disposition home or self-care (01) ==
LOC: ED 19:26
DX: T16.1XXA Foreign body in right ear, initial encounter (principal); X58.XXXA Exposure to other specified factors, initial encounter; F17.200 Nicotine dependence, unspecified, uncomplicated
CPT/HCPCS: 99281; 99282

== ENCOUNTER 2022-11-26 08:00 | Outpatient (CLI) | payer MEDICAID ==
[2022-11-26 20:54] LABS: CHLAMYDIA TRACHOMATIS DNA NEGATIVE (NEGATIVE); NEISSERIA GONORRHOEAE DNA NEGATIVE (NEGATIVE)
[2022-11-26 20:56] LABS: TRICHOMONAS VAGINALIS DNA POSITIVE (NEGATIVE)
== END 2022-11-26 23:59 | disposition home or self-care (01) ==
LOC: LAB.WC 08:00
PROVIDERS: ATTEND Nurse Practitioner
DX: Z11.3 Encounter for screening for infections with a predominantly sexual mode of transmission (principal)
CPT/HCPCS: 87491; 87591; 87661